=== PATIENT | female | born 1965 | race Two or more races ===

== ENCOUNTER 2022-10-24 03:14 | Emergency (ER) | payer BC, SELFPAY ==
[2022-10-24 03:36] VITALS: BP 185/85; PULSE 89; RESP 18; TEMP 36.7; O2SAT 99; BMI 31.9
[2022-10-24] MEDS: LORazepam 1 MG TABLET PO (04:03)
[2022-10-24 04:10] VITALS: BP 185/85; PULSE 89; RESP 18; TEMP 36.7
--- NOTE | 2022-10-24 08:25 | ED_ITS ---
HPI - General Adult General Chief complaint: Anxiety Stated complaint: panic attack Time Seen by Provider: 10/24/22 03:37 History of Present Illness HPI narrative: 47-year-old woman presenting to the emergency department noting feelings of a panic attack. Describes chest pressure that comes and goes. Has been evaluated regionally recently in ER, worked up for chest pain. I am able to review these records. Treated for anxiety and concern for ?mild meth intoxication?. She spends most of her time talking about how she had discovered a backpack of her son or daughter and some substance in there and took this to a sr. social media & mobile manager who basically ran off with it according to Cristina and further says that they suggested that she not inform the police about it. Turns out this was meth and Cristina felt that it needed to be formally tested by her. There was a question of recurrence of some breast cancer with a a 2 cm breast mass/swelling that is in process of evaluation. Is status post bilateral mastectomy apparently. Related Data Home Medications Medication Instructions Recorded Confirmed No Known Home Medications 10/24/22 10/24/22 Allergies Allergy/AdvReac Type Severity Reaction Status Date / Time Penicillins Allergy Severe Angioedema Verified 10/24/22 03:39 Review of Systems Status of ROS: Reports: 6 or more systems reviewed and unremarkable except as noted in History and below [facility] Medical History Anxiety Breast cancer Cardiac murmur Heart palpitations Panic attacks Surgical History History of appendectomy History of bilateral mastectomy History of section Social History Smoking Status: Never smoker Do you use any of these nicotine containing products: None Second hand tobacco smoke exposure: No How often do you have a drink containing alcohol: never How often do you have six or more drinks on one occasion: Never AUDIT-C Alcohol total score: 0 Non-prescribed substance use: other Non-prescribed substance use details: denies drug use but was meth + 10/18/2022 Exam Narrative: Exam Narrative: Is moving well. No extremities without difficulty. No edema, well perfused. Cranial nerves 2-12 are intact. Skin is without evidence of harm. Warm and dry. Is clearly anxious, agitated. Eyes are often closed. She is restless. Speech is pressured. Talking extensively. Tangential. Lungs appear to be clear. Heart in a regular rate and rhythm. Const: Vital Signs, click to edit/add: Vital Signs - 24 hr 10/24/22 03:36 10/24/22 04:10 Temperature 98.0 F 98.0 F Pulse Rate [Right Pulse Oximeter] 89 89 Respiratory Rate 18 18 Blood Pressure [Ri ght Upper Arm] 185/85 H 185/85 H Pulse Oximetry 99 Oxygen Delivery Me thod Room Air Documenting provider has reviewed patient's vital signs: yes Course Vital Signs Vital signs: Initial Vital Signs Respiratory Effort Spontaneous 10/24/22 03:35 Respiratory Depth Normal 10/24/22 03:35 Respiratory Pattern 10/24/22 03:35 Vital Signs Temperature 98.0 F 10/24/22 03:36 Pulse Rate 89 10/24/22 03:36 Respiratory Rate 18 10/24/22 03:36 Blood Pressure 185/85 H 10/24/22 03:36 Pulse Oximetry 99 10/24/22 03:36 Oxygen Delivery Method 10/24/22 03:36 Temperature 98.0 F 10/24/22 04:10 Pulse Rate 89 10/24/22 04:10 Respiratory Rate 18 10/24/22 04:10 Blood Pressure 185/85 H 10/24/22 04:10 Pulse Oximetry 99 10/24/22 03:36 Oxygen Delivery Method 10/24/22 03:36 Medical Decision Making MDM Narrative Medical decision making narrative: The symptoms unfortunately do seem most consistent with substance ingestion namely meth per history and report. Reviewing again records, it appears that has been evaluated for similar recently. Did encourage returning to or detox otherwise. She is not revealing though that this is a regular occurrence; that this was apparently an isolated event regarding content of her child's backpack. Discharge Plan Discharge Clinical Impression: Acute anxiety Patient Disposition: Home, Self-Care Condition: Stable Additional Instructions: Please call to your primary care provider to make an appointment as soon as possible. You can take this 1 tablet of lorazepam with you if you need for your anxiety. I am worried about you and it seems that it would be a good idea for you to go to or similar. Prescriptions: No Action No Known Home Medications Follow Up/Referrals: Provider,Not a Local [Primary Care Provider] - Stand Alone Forms: [employer] Info Instructions
== END 2022-10-24 04:10 | disposition home or self-care (01) ==
PROVIDERS: Emergency Provider Family Medicine
DX: F41.9 Anxiety disorder, unspecified (principal)
CPT/HCPCS: 99283; 99284; A9270

== ENCOUNTER 2023-07-25 12:02 | Emergency (ER) | payer BC, SELFPAY ==
[2023-07-25] VITALS (13 sets, daily range): BP systolic 159; BP diastolic 99; PULSE 56–88; RESP 20; TEMP 36.4; O2SAT 94–97; BMI 34.8
--- NOTE | 2023-07-25 12:45 | ED_ITS ---
HPI - Chest Pain General Time Seen by Provider: 12:45 Date Seen: 07/25/23 Chief Complaint: Chest Pain Stated Complaint: Short of breath Time Seen by Provider: 07/25/23 12:45 Source: patient and RN notes reviewed Mode of arrival: ambulatory Limitations: no limitations History of Present Illness HPI narrative: Cristina is a 47-year-old female coming in accompanied by a [facility] counseling case manager her supervises her son's visits with her. She is coming in with complaint of chest discomfort, she is complaining of pain in her back, was noted to have cramping pain when she went to sit up in her left chest wall. Around 10:00 a.m. this morning, she received the news that there was a warrant out for her son's arrest, he fled the retirement house that he was staying in in [place] last night. He had taken his mom's phone, they thought he had stooled from someone else. She does have it now. He originally came to [place] but now is fled to [place]. She has had other recent life stressors. She has a history of anxiety and panic attacks, this does feel like it. She was short of breath reportedly hyperventilating. She states she has not had a panic attack in a long time, did ask for some Ativan to help alleviate this. Her symptoms started around 10:00 a.m., has been having symptoms since then, she did talk to the counseling case manager about 11:00 a.m., she corroborates that she was complaining of these symptoms at that time. She feels nauseated, felt significant acid reflux and regurgitation of bile at the onset. She talks about her left 3rd finger cramping, muscular back pain, low back pain with cramping when she tried to sit up. She had a remote history of breast cancer over 10 years ago, did state that she had a clot, it possibly was of the PICC line from what she is explaining to me. No recurrence since then, no prior respiratory or cardiac history. No smoking, no drug use. She is complaining of muscle twitching in the left chest wall as well. MD complaint: chest pain, chest heaviness, chest discomfort and other (Shortness of breath) Related Data On Oral Contraceptives: No Previous Rx's Medication Instructions Recorded hydroxyzine HCl 25 mg tablet 25 mg PO TID PRN #15 tabs 11/17/23 Allergies Allergy/AdvReac Type Severity Reaction Status Date / Time Penicillins Allergy Severe Angioedema Verified 10/24/22 03:39 Review of Systems Status of ROS Reports: 6 or more systems reviewed and unremarkable except as noted in History and below [facility] Medical History Heart palpitations ?R00.2 - Palpitations (ICD-10) Panic attacks ?F41.0 - Panic disorder [episodic paroxysmal anxiety] (ICD-10) Cardiac murmur ?R01.1 - Cardiac murmur, unspecified (ICD-10) Breast cancer ?C50.919 - Malignant neoplasm of unspecified site of unspecified female breast (ICD-10) Anxiety ?F41.9 - Anxiety disorder, unspecified (ICD-10) Surgical History History of section ?Z98.891 - History of uterine scar from previous surgery (ICD-10) History of bilateral mastectomy ?Z90.13 - Acquired absence of bilateral breasts and nipples (ICD-10) History of appendectomy ?Z90.49 - Acquired absence of other specified parts of digestive tract (ICD- 10) Social History Smoking Status: Never smoker Do you use any of these nicotine containing products: None Second hand tobacco smoke exposure: No How often do you have a drink containing alcohol: never How often do you have six or more drinks on one occasion: Never AUDIT-C Alcohol total score: 0 Non-prescribed substance use: denies use and other Non-prescribed substance use details: denies drug use but was meth + 10/18/2022 service: No Exam Const Vital Signs, click to edit/add: Vital Signs - 24 hr 07/25/23 12:29 07/25/23 12:53 07/25/23 13:00 Temperature 97.6 F Pulse Rate 72 69 Pulse Rate [Pulse Oximeter] 86 Respiratory Rate 20 Blood Pressure [Right Forearm] 159/99 H Pulse Oximetry 97 97 95 Oxygen Delivery Method Room Air 07/25/23 13:15 07/25/23 13:30 07/25/23 13:45 Temperature Pulse Rate 80 73 67 Pulse Rate [Pulse Oximeter] Respiratory Rate Blood Pressure [Right Forearm] Pulse Oximetry 96 96 95 Oxygen Delivery Method 07/25/23 14:00 07/25/23 14:15 07/25/23 14:30 Temperature Pulse Rate 72 65 67 Pulse Rate [Pulse Oximeter] Respiratory Rate Blood Pressure [Right Forearm] Pulse Oximetry 95 95 95 Oxygen Delivery Method 07/25/23 14:45 07/25/23 15:00 Temperature Pulse Rate 88 71 Pulse Rate [Pulse Oximeter] Respiratory Rate Blood Pressure [Right Forearm] Pulse Oximetry 94 95 Oxygen Delivery Method Patient initially crying, tearful, do see twitching of her left chest wall, complains of muscular spasm when she goes to sit up, this is along the anterior left chest wall along the rib border. Sclera clear, conjugate gaze. Symmetrical facial function, able speak in complete sentences. Neck is supple, no cervical adenopathy, no thyromegaly masses or nodules. Lungs are clear, good air entry, no wheezing or crackles. CV regular rate and rhythm, do not hear any murmur at this time, normal S1 and S2. Abdomen is soft, no rebound or guarding, no organomegaly. Moving all extremities, no focal deficit. Patient definitely seems anxious, is not hyperventilating at the time I am talking to her, is settling down a bit. Documenting provider has reviewed patient's vital signs: yes Course Course ED Course: Reviewed with this patient that we certainly need to look at laboratory evaluation, consider cardiac as well as thromboembolic disease. Will get a portable chest x-ray. Nursing staff had done an EKG on arrival and this is looking reassuring. Will get appropriate labs including troponin and D-dimer. She is not hypoxic, not tachycardic, not hypotensive. I favor panic attack with this patient. Will give her 1 mg oral Ativan. Have discussed that benzodiazepines are best meant to be used very sporadically as they can be addictive. If she is noting ongoing significant anxiety issues as well as panic attacks, treatment with preventative long-term medicines should be considered, she would follow up with her primary care provider for this. Reevaluation(s) Time of Reevaluation #1: 15:17 Reevaluation #1: Went in to review patient's test results, she was sleeping soundly. Does awaken with stimulation but is certainly sedated from her medicines. She had requested hydroxyzine and I did give her 50 mg oral. We reviewed her normal labs, I a certainly think she was suffering from anxiety and had a panic attack. Will have her sleep for a while longer, have discussed with nursing staff when they feel comfortable with her clinically discharging, can do so. Vital Signs Vital signs: Initial Vital Signs Temperature 97.6 F 07/25/23 12:29 Temperature Source Temporal Artery Scan 07/25/23 12:29 Pulse Rate 86 07/25/23 12:29 Pulse Rhythm Regular 07/25/23 12:29 Respiratory Rate 20 07/25/23 12:29 Blood Pressure 159/99 H 07/25/23 12:29 Blood Pressure Mean 119 H 07/25/23 12:29 Blood Pressure Position Supine 07/25/23 12:29 Pulse Oximetry 97 07/25/23 12:29 Oxygen Delivery Method Room Air 07/25/23 12:29 Vital Signs Temperature 97.6 F 07/25/23 12:29 Pulse Rate 86 07/25/23 12:29 Respiratory Rate 20 07/25/23 12:29 Blood Pressure 159/99 H 07/25/23 12:29 Pulse Oximetry 97 07/25/23 12:29 Oxygen Delivery Method Room Air 07/25/23 12:29 Temperature 97.6 F 07/25/23 12:29 Pulse Rate 71 07/25/23 15:00 Respiratory Rate 20 07/25/23 12:29 Blood Pressure 159/99 H 07/25/23 12:29 Pulse Oximetry 95 07/25/23 15:00 Oxygen Delivery Method Room Air 07/25/23 12:29 Medications Administered Medications: Discontinued Medications Generic Name Dose Route Start Last Admin Trade Name Freq PRN Reason Stop Dose Admin Hydroxyzine Pamoate 50 mg 07/25/23 14:38 07/25/23 14:45 Hydroxyzine Pamoate 25 Mg Capsule PO 07/25/23 14:39 50 mg ONCE ONE Administration Lorazepam 1 mg 07/25/23 13:06 07/25/23 13:14 Lorazepam 1 Mg Tablet PO 07/25/23 13:07 1 mg ONCE ONE Administration MDM - Chest Pain Lab Data Attestation: I reviewed the patient's lab results. Labs: Lab Results 07/25/23 07/25/23 Range/Units 12:47 13:50 WBC 7.42 (4.50-11.00) K/uL RBC 4.87 (4.00-5.20) m/uL Hgb 14.7 (12.0-16.0) gm/dL Hct 42.8 (33.0-51.0) % MCV 88 (80-100) fL MCH 30 (26-34) pg MCHC 34 (32-36) gm/dL RDW Coeff of Lex 12.1 (11.5-15.5) % Plt Count 260 (140-440) K/uL Neut % (Auto) 60.3 (42.0-72.0) % Lymph % (Auto) 33.0 (20-44) % [place] % (Auto) 5.1 (0.0-11.0) % Eos % (Auto) 1.2 (0.0-7.0) % Baso % (Auto) 0.4 (0.0-3.0) % Neut # (Auto) 4.47 (1.7-7.0) K/uL Lymph # (Auto) 2.45 (0.90-2.90) K/uL [place] # (Auto) 0.40 (0.00-0.90) K/UL Eos # (Auto) 0.09 (0.00-0.50) K/uL Baso # (Auto) 0.03 (0.00-0.30) K/uL Abs Immat Gran (auto) 0.00 (0.00-0.30) K/uL Imm/Tot Granulo (auto) 0.0 % D-Dimer Quant (PE/DVT) 0.33 (0.00-0.50) ug/ml Sodium 142 (135-149) mmol/L Potassium 4.1 (3.6-5.1) mmol/L Chloride 107 (96-114) mmol/L Carbon Dioxide 24 (20-32) mmol/L Anion Gap 11 (7-15) mEq/L BUN 14 (7-30) mg/dL Creatinine 0.6 (0.5-1.5) mg/dL Estimated Creat Clear 76.10 Estimated GFR 106 ml/min Glucose 116 H (60-115) mg/dL Calcium 9.4 (8.4-10.6) mg/dL Magnesium 2.1 (1.5-2.6) mg/dL NT-Pro-B Natriuret Pep 70 pg/mL Lab Acknowledgement Test Added POC Troponin I 0.00 L (0.01-0.04) ng/ml Imaging Data Chest x-ray: My impression: No acute pathology on my preliminary review of her portable chest x-ray. ECG Data Attestation: I personally reviewed and interpreted this ECG as follows: (Sinus rhythm, 81 beats per minute. No evidence of any ischemic change on this EKG. QT corrected 462 milliseconds.) ECG interpretation date: 07/25/23 ECG interpretation time: 13:05 Prior ECG tracings: not available for review Critical Care Time Critical Care Time Critical Care Time: No Discharge Plan Discharge Clinical Impression: Anxiety, Panic attack Patient Disposition: Home, Self-Care Condition: Stable Instructions: Panic Disorder (ED), Anxiety (ED), Panic Attack (ED) Additional Instructions: Can try the Vistaril if you have further panic attacks. Do recommend following up in clinic to discuss underlying anxiety and life stressors with your primary care provider. May want to consider a long-term medicine if anxiety continues. Therapy and cognitive behavioral therapy can be helpful, talk to your primary care provider further about these. Activity Level: Activity as Tolerated Discharge Diet: Regular Prescriptions: New hydroxyzine HCl 25 mg tablet 25 mg PO TID PRNQty: 15 0RF Follow Up/Referrals: Provider,Not a Local [Referring] - Stand Alone Forms: [employer] Info Instructions
--- NOTE | 2023-07-25 12:47 | CRLHL7_ITS ---
For Patients: As a result of the Century Cures Act, medical imaging exams and procedure reports are released immediately into your electronic medical record. You may view this report before your referring provider. If you have questions, please contact your health care provider. INDICATION: Chest pain. Shortness of breath. Findings : A single portable chest x-ray shows a normal cardiac silhouette. The lungs show no focal pulmonary opacities. Sharp pleural margins. No pneumothorax. Impression : 1. No focal pulmonary opacities. No pneumothorax. Dictated by Preet Tran MD @ 08/02/2023 2:11:59 PM (Electronically Signed)
[2023-07-25] MEDS: LORazepam 1 MG TABLET PO (13:14)
[2023-07-25 14:09] LABS: Basophils Absolute Auto 0.03 K/uL (0.00-0.30); Basophils Percent Auto 0.4 % (0.0-3.0); Eosinophils Absolute Auto 0.09 K/uL (0.00-0.50); Eosinophils Percent Auto 1.2 % (0.0-7.0); Hematocrit 42.8 % (33.0-51.0); Hemoglobin* 14.7 gm/dL (12.0-16.0); Lymphocytes Absolute Auto 2.45 K/uL (0.90-2.90); Mean Corpuscular HGB Conc 34 gm/dL (32-36); Mean Corpuscular Hemoglobin 30 pg (26-34); Mean Corpuscular Volume 88 fL (80-100); Monocytes Percent Auto 5.1 % (0.0-11.0); Neutrophils Absolute Auto 4.47 K/uL (1.7-7.0); Neutrophils Percent Auto 60.3 % (42.0-72.0); Platelet Count* 260 K/uL (140-440); RDW Coefficient of Variation % 12.1 % (11.5-15.5); Red Blood Count 4.87 m/uL (4.00-5.20); White Blood Count* 7.42 K/uL (4.50-11.00)
[2023-07-25 14:10] LABS: Potassium* 4.1 mmol/L (3.6-5.1); Sodium* 142 mmol/L (135-149)
[2023-07-25 14:11] LABS: Slide Review Reflex No
[2023-07-25 14:28] LABS: Chloride* 107 mmol/L (96-114)
[2023-07-25 14:31] LABS: Creatinine* 0.6 mg/dL (0.5-1.5); Estimated Glomerular Filt Rate 106 ml/min
[2023-07-25 14:32] LABS: Anion Gap 11 mEq/L (7-15); Blood Urea Nitrogen* 14 mg/dL (7-30); Calcium* 9.4 mg/dL (8.4-10.6); Carbon Dioxide* 24 mmol/L (20-32); Glucose* 116 mg/dL (60-115); Magnesium* 2.1 mg/dL (1.5-2.6)
[2023-07-25 14:36] LABS: D Dimer Quantitative* 0.33 ug/ml (0.00-0.50)
[2023-07-25 14:41] LABS: NT Pro B Type NatriureticPept* 70 pg/mL
[2023-07-25] MEDS: hydrOXYzine pamoate 25 MG CAPSULE 50 MG PO (14:45)
== END 2023-07-25 16:01 | disposition home or self-care (01) ==
PROVIDERS: Emergency Provider Family Medicine; PCP Family Medicine
DX: F41.0 Panic disorder [episodic paroxysmal anxiety] (principal)
CPT/HCPCS: 36415; 71045; 80048; 83735; 83880; 84484; 85025; 85379; 93005; 94761; 99284; A9270